=== PATIENT | female | born 2000 | race Caucasian/White ===

== ENCOUNTER 2023-03-14 21:08 | Emergency (ER) | payer BC ==
[~2023-03-14] VITALS: Ht 157.5 cm; Wt 68.0 kg
[2023-03-14 21:24] VITALS: BP 135/91
--- NOTE | 2023-03-14 21:24 | NUR ---
pt wentto the lobby
--- NOTE | 2023-03-14 22:17 | NUR ---
pt went for x ray
[2023-03-14] MEDS ORDERED: ACETAMINOPHEN 325 MG TAB PO ONE (22:55)
[2023-03-14] MEDS ORDERED: IBUP-2213 PO (23:06)
--- NOTE | 2023-03-14 23:30 | NUR ---
Patient discharged. Written and verbal after care instructions given and explained. Patient alert, oriented and verbalized understanding of instructions. Ambulatory with steady gait while usig crutches. All questions addressed prior to discharge. ID band removed. Patient advised to follow up with PMD. Rx of Ibuprofen given. Patient educated on indication of medication including possible reaction and side effects. Opportunity to ask questions provided and answered.
== END 2023-03-14 23:30 | disposition home or self-care (01) ==
LOC: MED 21:08
DX: S93.491A Sprain of other ligament of right ankle, initial encounter (principal); Z79.899 Other long term (current) drug therapy; X58.XXXA Exposure to other specified factors, initial encounter; Y93.89 Activity, other specified; Y92.89 Other specified places as the place of occurrence of the external cause; Y99.8 Other external cause status
CPT/HCPCS: 73610; 99283